=== PATIENT | female | born 1970 | race Caucasian/White ===

== ENCOUNTER → 2019-08-24 13:00 | Outpatient (CLI) | payer BC, SELFPAY ==
--- NOTE | 2019-08-24 13:07 | XR_ITS ---
PROCEDURE: XR RIBS RT 2V CLINICAL INDICATION: RT SIDED CHEST WALL PAIN COMPARISON: No exams were available for comparison FINDINGS: Multiple views of the right ribs show no obvious fracture dislocation lytic or blastic change. If pain persists, consider follow-up exam in 7-10 days or volumetric chest CT with 3D reformats IMPRESSION: No acute findings. Dictated by: Anton Shearer MD 08/24/2019 13:37 Electronically signed by Anton Shearer MD in [place] 08/24/2019 13:37
--- NOTE | 2019-08-24 13:07 | XR_ITS ---
PROCEDURE: XR CHEST 2V CLINICAL HISTORY: RT SIDED CHEST WALL PAIN COMPARISON: CXR CHEST(2 VIEWS-NOT PORTABLE) from 07/30/2014 FINDINGS: The cardiomediastinal silhouette and pulmonary vascularity are within normal limits. No lobar consolidation or collapse is evident. Faint opacity is present in the right midlung overlying the 4th interspace anteriorly not significantly changed. There is an old left 7th rib fracture posteriorly. Coronary artery calcifications are present. No acute bony abnormalities. IMPRESSION: No change with no acute finding. Coronary artery calcifications noted Dictated by: Anton Shearer MD 08/24/2019 13:38 Electronically signed by Anton Shearer MD in [place] 08/24/2019 13:38
== END ==
PROVIDERS: PCP Internal Medicine Adolescent Medicine; Visit Provider Internal Medicine Adolescent Medicine
DX: R07.89 Other chest pain (principal)
CPT/HCPCS: 71046; 71100

== ENCOUNTER → 2023-03-19 13:25 | Outpatient (CLI) | payer BC, SELFPAY ==
--- NOTE | 2023-03-19 13:38 | XR_ITS ---
FINAL REPORT CLINICAL HISTORY: CELLULITIS COMPARISON: None FINDINGS: AP, lateral and oblique views of the right hand were obtained. There is no prior exam for comparison. There is no acute fracture or dislocation. There is mild multijoint degenerative change. The soft tissues are normal. IMPRESSION: No acute osseous abnormality of the right hand. Reviewed, Interpreted and Dictated by Bria Ramires MD Transcribed by Deann Ibarra Authenticated and [facility]
== END ==
PROVIDERS: PCP Internal Medicine Adolescent Medicine; Visit Provider Nurse Practitioner Family
DX: L03.113 Cellulitis of right upper limb (principal)
CPT/HCPCS: 73130